=== PATIENT | male | born 1935 | race Caucasian/White ===

== ENCOUNTER 2018-03-11 13:19 | Outpatient (CLI) | payer MEDICARE ==
--- NOTE | 2018-03-11 15:35 | PET ---
NUCLEAR MEDICINE FDG PET CT: (Positron Emission Tomography) DATE: 03/11/18 HISTORY: 82-year-old male with right pulmonary mass. COMPARISON: None. TECHNIQUE: IV injection F-18 Fluorodeoxyglucose (FDG) dose: 13.1 mCi PET and attenuation-correction CT performed from skull base to proximal thighs. FINDINGS: SUV (standard uptake value) numbers given are maximum SUV's: QCLR used to obtain SUV. There is a right hilar mass measuring approximately 5 x 3 cm which is very FDG-avid, with SUV of 16.2 . It causes bronchial obstruction, resulting in atelectasis of the anterior segment of the right upper lobe. There is a separate, much smaller, mildly enlarged right inferior posterior hilar lymph node that is FDG-avid, with SUV of 12.6. There are no hypermetabolic mediastinal lymph nodes, or any other hypermetabolic pulmonary lesions. 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 No hypermetabolic activity in the neck. No abnormal hypermetabolic activity in the upper abdominal cavity. In the right lower quadrant of the abdominal cavity at the anterior upper pelvis, there is a focus of high FDG avidity (SUV 15.1) involving a slightly low density area involving the right lateral aspect of a portion of the distal sigmoid colon. This contains a tiny bubble of gas within it. No hypermeta bolic iliac chain lymphadenopathy. There is FDG avidity involving a moderately large component of left gluteal musculature with SUV of 7 .0. Left hip replacement arthroplasty metallic hardware. 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 IMPRESSION: 1. Hypermetabolic right hilar mass causing bronchial obstruction resulting in atelectasis of anterio r segment of right upper lobe: evidence for primary right lung cancer. 2. Evidence for a separate right malignant posterior inferior hilar lymph node. 3. Broad region of very hypermetabolic activity along the right lateral edge of the sigmoid colon. T his could be colon cancer or a diverticular abscess. Recommend correlation with colonoscopy. 4. Moderately large region of uptake in the left gluteus musculature, which may represent muscle str ain or tear. 5. A 5.4 x 4.5 cm infrarenal abdominal aortic aneurysm. JN R POS: [facility]
== END 2018-03-11 13:20 | disposition home or self-care (01) ==
LOC: PET 13:19
PROVIDERS: ATTEND Internal Medicine
DX: R91.1 Solitary pulmonary nodule (principal); C34.91 Malignant neoplasm of unspecified part of right bronchus or lung; J98.11 Atelectasis; C77.1 Secondary and unspecified malignant neoplasm of intrathoracic lymph nodes; I71.4 Abdominal aortic aneurysm, without rupture
CPT/HCPCS: 78815; A9552

== ENCOUNTER 2018-03-31 12:09 | Day surgery (SDC) | payer MEDICARE ==
[2018-03-30 14:32] VITALS: BMI 25.1
[2018-03-31] MEDS ORDERED: Fentanyl 100 MCG/2 ML VIAL ONE (12:56)
[2018-03-31] MEDS ORDERED: Succinylcholine Chloride 20 MG/ML 10 ml SYRINGE FS ONE (13:40)
[2018-03-31] MEDS ORDERED: PROPOFOL 200 MG/20 ML VIAL ONE (13:40)
[2018-03-31] MEDS ORDERED: Ondansetron PF 4 MG/2 ML Vial ONE (13:40)
[2018-03-31] MEDS ORDERED: PHENYLEPHRINE-NS 100 MCG/ML 10 ML SYRINGE ONE (13:40)
[2018-03-31] MEDS ORDERED: Dexamethasone 20 MG/5 ML VIAL ONE (13:40)
--- NOTE | 2018-03-31 17:01 | OP ---
DATE OF PROCEDURE: 03/31/2018 SERVICE: Pulmonary Medicine. PROCEDURES PERFORMED: Fiberoptic bronchoscopy with; 1. Endoscopic bronchial ultrasound-guided TBNA of station R3. 2. Visual airway inspection. 3. BAL from the right lung. 4. Endobronchial biopsies of the right upper lobe, and right bronchus intermedius. PREOPERATIVE DIAGNOSES: 1. Pulmonary mass. 2. Mediastinal lymphadenopathy. POSTPROCEDURE DIAGNOSES: 1. Pulmonary mass. 2. Mediastinal lymphadenopathy. MEDICATIONS USED: Please refer Anesthesia documentation for list of medications administered during this procedure. PREANESTHESIA ASSESSMENT: H and P had been performed. The patient's medications and allergies were reviewed. Informed consent was obtained after discussing the rationale, benefits, and risks of the procedure. Alternative options of sample collection were discussed. DESCRIPTION OF PROCEDURE: The patient was positively identified with name and date of . The procedure was verified. After induction of anesthesia, in a curvilinear endoscopic bronchial ultrasound and Olympus bronchoscope were introduced through the 9.0-Romansh endotracheal tube. A juan j survey was carried out. The only lymph node that was clearly identified was a very small benign-appearing R3 node. This was sampled x2. Unfortunately, we got nothing but respiratory epithelial cells. No lymphocytes were identified. This procedure was subsequently abandoned. Our this procedure was subsequently abandoned. A bronchial tree inspection was then carried out with clear identification of the lingula and left upper lobe. The right upper lobe was completely obliterated by a fungating right upper lobe white mass. The right bronchus intermedius was entered. The takeoff to the right middle lobe was wide open. The superior segment was also noted. Just distal to this into the right lower lobe, there was obstruction with very abnormal appearing mucosa. Multiple biopsies were taken at this site. I could not see anything distal to this lesion, though it was easy to pass any instruments I needed to beyond it. I also sampled the fungating mass coming from the right upper lobe on multiple occasions. Samples were sent for analysis. During the procedure, wash was obtained from the entirety of the right lung. This will also be sent for analysis. Hemostasis was verified and the bronchoscope was subsequently removed from the patient. FINDINGS: 1. The right upper lobe bronchus was completely obliterated by a fungating white endobronchial mass. 2. Right lower lobe bronchus had significant mucosal irregularities, status post multiple biopsies. 3. No other endobronchial disease was identified. 4. A very small R3 lymph node had a benign appearance, status post TBNA, which did not yield any malignant cells. SPECIMENS OBTAINED: 1. TBNA of station R3. 2. Endobronchial biopsy of right upper lobe mass. 3. Endobronchial biopsy of right lower lobe mucosal irregularities. 4. Bronchial washing from the right lung. COMPLICATIONS: None. ESTIMATED BLOOD LOSS: 5 mL. FLUOROSCOPY TIME: None. DISPOSITION: The patient will recover from sedation. When he meets criteria, discharge from the hospital will be arranged. I will have the patient follow up with me in clinic after the results come back. Job ID: [id number]
== END 2018-03-31 16:38 | disposition home or self-care (01) ==
LOC: SDC 12:09
PROVIDERS: ATTEND Internal Medicine
PROC: 07D78ZX Extraction of Thorax Lymphatic, Via Natural or Artificial Opening Endoscopic, Diagnostic (ICD-10-PCS; principal; 2018-03-31)
PROC: 0BDK8ZX Extraction of Right Lung, Via Natural or Artificial Opening Endoscopic, Diagnostic (ICD-10-PCS; 2018-03-31)
PROC: 0BB68ZX Excision of Right Lower Lobe Bronchus, Via Natural or Artificial Opening Endoscopic, Diagnostic (ICD-10-PCS; 2018-03-31)
PROC: 0BB48ZX Excision of Right Upper Lobe Bronchus, Via Natural or Artificial Opening Endoscopic, Diagnostic (ICD-10-PCS; 2018-03-31)
DX: C34.11 Malignant neoplasm of upper lobe, right bronchus or lung (principal); I25.10 Atherosclerotic heart disease of native coronary artery without angina pectoris; I71.4 Abdominal aortic aneurysm, without rupture; I10 Essential (primary) hypertension; E78.5 Hyperlipidemia, unspecified; F03.90 Unspecified dementia, unspecified severity, without behavioral disturbance, psychotic disturbance, mood disturbance, and anxiety; F41.9 Anxiety disorder, unspecified; Z87.891 Personal history of nicotine dependence; Z90.49 Acquired absence of other specified parts of digestive tract; Z96.642 Presence of left artificial hip joint; Z79.02 Long term (current) use of antithrombotics/antiplatelets; Z79.82 Long term (current) use of aspirin; Z79.899 Other long term (current) drug therapy; Z98.890 Other specified postprocedural states
CPT/HCPCS: 88112; 88172; 88173; 88305; 88312; 88313; 88341; 88342; J3010

== ENCOUNTER 2018-05-31 14:56 | Emergency (ER) | payer MEDICARE ==
--- NOTE | 2018-05-31 15:30 | RAD ---
2 VIEW CHEST: Date: 05/31/18 HISTORY: Cough. History of lung cancer. COMPARISON: 11/23/17. FINDINGS: Parenchymal haziness in the right suprahilar region is a similar appearance to the 11/23/17 exam. Mel vated right hemidiaphragm is unchanged in appearance. The heart and mediastinum appear stable. Left l jhoana remains clear and unchanged. IMPRESSION: Chest findings appear stable from 11/23/17. POS: [facility]
[2018-05-31 15:49] LABS: #Eosinphils 0.1 thou/uL (0.0-0.7); #Lymphocytes 1.9 thou/uL (1.20-3.40); #Monocytes 1.2 thou/uL (0.11-0.59); #Neutrophils 7.6 thou/uL (1.40-6.50); %Basophils 0.3 % (0.0-1.0); %Eosinophils 0.7 % (0.0-10.0); %Lymphocytes 17.2 % (21.0-51.0); %Monocytes 11.3 % (0.0-10.0); %Neutrophils 70.5 % (42.0-75.0); Hemoglobin 13.6 g/dL (14.0-18.0); Mean Corpuscular HGB CONC 32.3 g/dL (32.0-36.0); Mean Corpuscular Hemoglobin 31.5 pg (27.0-31.0); Mean Corpuscular Volume 97.4 fL (78.0-98.0); Mean Platelet Volume 5.8 fL (7.4-10.4); Platelet Count 186 thou/uL (130-400); RBC Distribution Width 12.7 % (11.5-14.5); Red Blood Cell (RBC) Count 4.33 mill/uL (4.70-6.10); White Blood Cell (WBC) Count 10.8 thou/uL (4.8-10.8)
[2018-05-31 16:04] LABS: INR-International Normal Ratio 1.2; PTT 26.8 SEC (22.9-36.1); Prothrombin Time 15.6 SEC (12.0-14.7)
[2018-05-31 16:11] LABS: ALT (SGPT) 12 U/L (8-55); AST (SGOT) 21 U/L (5-34); Albumin 3.6 g/dL (3.4-4.8); Alkaline Phosphatase 90 U/L (40-150); Anion Gap 13 mmol/L (10-20); BUN (Urea Nitrogen) 16 mg/dL (8.4-25.7); Bilirubin, Total 0.7 mg/dL (0.2-1.2); Calc. Creatinine Clearance 0 mL/min (70-130); Calcium 9.1 mg/dL (7.8-10.44); Carbon Dioxide 24 mmol/L (23-31); Chloride 108 mmol/L (98-107); Estimated GFR-MDRD 55; Globulin 2.6 g/dL (2.4-3.5); Glucose 118 mg/dL (83-110); Potassium 4.2 mmol/L (3.5-5.1); Protein, Total 6.2 g/dL (5.8-8.1); Sodium 141 mmol/L (136-145)
[2018-05-31 16:14] LABS: CK (CPK) 48 U/L (30-200); Lipase 14 U/L (8-78)
== END 2018-05-31 16:40 | disposition home or self-care (01) ==
LOC: ERS 14:56
DX: C34.91 Malignant neoplasm of unspecified part of right bronchus or lung (principal); R04.2 Hemoptysis; I71.9 Aortic aneurysm of unspecified site, without rupture; Z87.891 Personal history of nicotine dependence; Z79.899 Other long term (current) drug therapy; Z79.51 Long term (current) use of inhaled steroids
CPT/HCPCS: 36415; 71046; 80053; 82550; 83690; 85025; 85610; 85730; 86850; 86900; 86901; 93005; 94760

== ENCOUNTER 2018-12-21 10:32 | Outpatient (CLI) | payer MEDICARE ==
--- NOTE | 2018-12-21 11:17 | RAD ---
PA AND LATERAL CHEST: HISTORY: Dyspnea. COMPARISON: Chest x-ray from 05/31/2018. Chest x-ray from 11/23/2017. Chest x-ray from 12/06/2015. FINDINGS: Heart size is within normal limits. The aorta is tortuous with atherosclerotic change. On the PA proj ection the parenchymal change in the right upper lobe shows more of a linear band like appearance, mo re prominent than it has been on the prior exams, but the appearance is actually fairly similar when comparing the lateral view. Some of this may just be a projectional finding. The left lung remains cl ear. IMPRESSION: Volume loss changes with atelectatic type change in the right upper lobe. On the posterior-anterior p rojection it appears slightly more prominent but not definitely changed when viewing the lateral film s. POS: [facility]
== END 2018-12-21 10:33 | disposition home or self-care (01) ==
LOC: RAD 10:32
PROVIDERS: ATTEND Internal Medicine
DX: R06.00 Dyspnea, unspecified (principal)
CPT/HCPCS: 71046

== ENCOUNTER 2020-12-31 08:19 | Inpatient (IN) | payer MEDICARE ==
[~2020-12-31 08:19] MED LIST: Acetaminophen 325 MG TAB PO PRN
[2020-12-31] MEDS ORDERED: Albuterol Sulfate 2.5 mg/3 ml Neb NEB PRN ×2 (11:18→13:33)
[2020-12-31] MEDS ORDERED: Azithromycin 250 MG TAB PO SCH (14:15)
[2020-12-31 15:51] LABS: Troponin I 0.027 ng/mL (< 0.028)
[2020-12-31 16:22] VITALS: BMI 27.6
[2020-12-31] MEDS: Polyethylene Glycol 3350 17 GM Packet PO SCH (21:14)
[2020-12-31] MEDS: Donepezil HCl 5 MG TAB PO SCH (21:18)
[2020-12-31] MEDS: guaiFENesin ER 600 MG TAB PO SCH (21:18)
[2020-12-31] MEDS ORDERED: Ibuprofen 800 MG TAB PO SCH (22:00)
[2020-12-31] MEDS: Zolpidem Tartrate 5 MG TAB PO SCH (22:53)
[2021-01-01 05:14] LABS: #Basophils 0.1 thou/uL (0.0-0.2); #Eosinphils 0.1 thou/uL (0.0-0.7); #Lymphocytes 0.6 thou/uL (1.20-3.40); #Monocytes 0.9 thou/uL (0.11-0.59); #Neutrophils 10.8 thou/uL (1.40-6.50); %Basophils 0.8 % (0.0-1.0); %Eosinophils 1.2 % (0.0-10.0); %Lymphocytes 4.6 % (21.0-51.0); %Monocytes 6.8 % (0.0-10.0); %Neutrophils 86.6 % (42.0-75.0); Hemoglobin 11.5 g/dL (14.0-18.0); Mean Corpuscular HGB CONC 32.1 g/dL (32.0-36.0); Mean Corpuscular Hemoglobin 30.4 pg (27.0-31.0); Mean Corpuscular Volume 94.7 fL (78.0-98.0); Mean Platelet Volume 5.9 fL (7.4-10.4); Platelet Count 241 thou/uL (130-400); RBC Distribution Width 14.8 % (11.5-14.5); Red Blood Cell (RBC) Count 3.79 mill/uL (4.70-6.10); White Blood Cell (WBC) Count 12.5 thou/uL (4.8-10.8)
[2021-01-01 05:33] LABS: ALT (SGPT) 36 U/L (8-55); AST (SGOT) 40 U/L (5-34); Albumin 2.7 g/dL (3.4-4.8); Alkaline Phosphatase 114 U/L (40-110); Anion Gap 11 mmol/L (10-20); BUN (Urea Nitrogen) 15 mg/dL (8.4-25.7); Calc. Creatinine Clearance 52 mL/min (70-130); Calcium 8.9 mg/dL (7.8-10.44); Carbon Dioxide 29 mmol/L (23-31); Chloride 101 mmol/L (98-107); Globulin 2.8 g/dL (2.4-3.5); Glucose 100 mg/dL (83-110); Potassium 3.1 mmol/L (3.5-5.1); Protein, Total 5.5 g/dL (5.8-8.1); Sodium 138 mmol/L (136-145)
[2021-01-01] MEDS ORDERED: Potassium Chloride 20 MEQ TAB PO SCH (09:00)
[2021-01-01] MEDS ORDERED: Enoxaparin Sodium 40 MG/0.4 ML SYRINGE SC SCH (09:00)
[2021-01-01] MEDS ORDERED: FLU VACC QS2021-22(65YR UP)/PF 240 MCG/0.7 ML SYRINGE IM ONE (09:00)
[2021-01-01] MEDS: Polyethylene Glycol 3350 17 GM Packet PO SCH ×2 (09:22→20:03)
[2021-01-01] MEDS: Clopidogrel Bisulfate 75 MG TAB PO SCH (09:24)
[2021-01-01] MEDS: Aspirin 81 mg Enteric Coated Tablet PO SCH (09:24)
[2021-01-01] MEDS: guaiFENesin ER 600 MG TAB PO SCH ×2 (09:25→20:03)
[2021-01-01] MEDS: Dexamethasone 4 MG TAB PO SCH (09:25)
[2021-01-01] MEDS: Amlodipine 10 MG TAB PO SCH (09:25)
[2021-01-01] MEDS: Atorvastatin Calcium 20 MG TAB PO SCH (09:26)
[2021-01-01] MEDS: Azithromycin 250 MG TAB PO SCH (09:26)
[2021-01-01 10:52] LABS: HBSAB Concentration Less than 8.00 mIU/mL; HBSAg Index 0.27 S/CO (0-0.99); Hep B Surf AB Non-Reactive (NonReactive); Hep B Surf Ag Non-Reactive S/CO (NonReactive); Hep C IgG Ab Non-Reactive (NonReactive); Hep C Index 0.08 S/CO (0-0.79)
[2021-01-01] MEDS: cefTRIAXone\\ROCEPHIN 1 GM in Sodium Chloride 0.9% 100 ML IVPB SCH (13:46)
[2021-01-01 16:31] LABS: HBCM Index 0.07 S/CO (0-0.79); Hepatitis B Core IgM Abs Non-Reactive (NonReactive)
[2021-01-01 18:02] LABS: SARS-CoV-2 PCR by NAA Not Detected (NotDetected)
[2021-01-01] MEDS ORDERED: Mometasone Furoate 120 PUFF 220 MCG INH SCH (18:30)
[2021-01-01] MEDS: Mometasone 100 MCG/Formoterol 5 MCG 120 PUFF INHALER INH SCH (18:39)
[2021-01-01] MEDS: Donepezil HCl 5 MG TAB PO SCH (20:03)
[2021-01-01] MEDS: Zolpidem Tartrate 5 MG TAB PO SCH (23:12)
[2021-01-02] MEDS: Mometasone 100 MCG/Formoterol 5 MCG 120 PUFF INHALER INH SCH ×2 (06:55→18:58)
[2021-01-02] MEDS: Polyethylene Glycol 3350 17 GM Packet PO SCH ×2 (08:19→18:40)
[2021-01-02] MEDS: Dronedarone HCl 400 MG TAB PO SCH ×2 (08:20→18:25)
[2021-01-02] MEDS: Aspirin 81 mg Enteric Coated Tablet PO SCH (08:20)
[2021-01-02] MEDS: guaiFENesin ER 600 MG TAB PO SCH ×2 (08:21→20:28)
[2021-01-02] MEDS: Atorvastatin Calcium 20 MG TAB PO SCH (08:21)
[2021-01-02] MEDS: Amlodipine 10 MG TAB PO SCH (08:22)
[2021-01-02] MEDS: Clopidogrel Bisulfate 75 MG TAB PO SCH (08:22)
[2021-01-02] MEDS: Azithromycin 250 MG TAB PO SCH (08:22)
[2021-01-02] MEDS: Dexamethasone 4 MG TAB PO SCH (08:22)
[2021-01-02] MEDS: Enoxaparin Sodium 80 MG/0.8 ML SYRINGE SC SCH ×2 (08:23→20:28)
[2021-01-02] MEDS ORDERED: Furosemide 20 MG/2 ML VIAL SLOW IVP SCH (09:00)
[2021-01-02] MEDS: Tamsulosin HCl 0.4 MG CAP PO SCH (09:56)
[2021-01-02] MEDS: Lisinopril 10 MG TAB PO SCH (09:56)
[2021-01-02] MEDS: cefTRIAXone\\ROCEPHIN 1 GM in Sodium Chloride 0.9% 100 ML IVPB SCH (14:54)
[2021-01-02] MEDS: Acetaminophen 325 MG TAB PO PRN (14:54)
[2021-01-02] MEDS: Zolpidem Tartrate 5 MG TAB PO SCH (20:28)
[2021-01-02] MEDS: Donepezil HCl 5 MG TAB PO SCH (20:28)
[2021-01-03 05:50] LABS: Anion Gap 11 mmol/L (10-20); BUN (Urea Nitrogen) 19 mg/dL (8.4-25.7); Calc. Creatinine Clearance 53 mL/min (70-130); Carbon Dioxide 33 mmol/L (23-31); Chloride 99 mmol/L (98-107); Glucose 140 mg/dL (83-110); Sodium 139 mmol/L (136-145)
[2021-01-03] MEDS: Mometasone 100 MCG/Formoterol 5 MCG 120 PUFF INHALER INH SCH ×2 (07:33→18:22)
[2021-01-03] MEDS: Polyethylene Glycol 3350 17 GM Packet PO SCH (08:50)
[2021-01-03] MEDS: Dronedarone HCl 400 MG TAB PO SCH ×2 (08:53→18:20)
[2021-01-03] MEDS: Acetaminophen 325 MG TAB PO PRN (08:53)
[2021-01-03] MEDS: Dexamethasone 4 MG TAB PO SCH (08:56)
[2021-01-03] MEDS: Aspirin 81 mg Enteric Coated Tablet PO SCH (08:57)
[2021-01-03] MEDS: Atorvastatin Calcium 20 MG TAB PO SCH (08:57)
[2021-01-03] MEDS: Azithromycin 250 MG TAB PO SCH (08:57)
[2021-01-03] MEDS: Amlodipine 10 MG TAB PO SCH (08:57)
[2021-01-03] MEDS: Tamsulosin HCl 0.4 MG CAP PO SCH (08:57)
[2021-01-03] MEDS: Enoxaparin Sodium 80 MG/0.8 ML SYRINGE SC SCH (08:58)
[2021-01-03] MEDS: Lisinopril 10 MG TAB PO SCH (08:58)
[2021-01-03] MEDS: guaiFENesin ER 600 MG TAB PO SCH (08:58)
[2021-01-03] MEDS ORDERED: Rivaroxaban 10 MG TAB PO SCH ×3 (14:00→21:00)
[2021-01-03] MEDS: cefTRIAXone\\ROCEPHIN 1 GM in Sodium Chloride 0.9% 100 ML IVPB SCH (14:47)
[2021-01-03 16:04] VITALS: BP 115/61; TEMP 98.1
== END 2021-01-03 18:41 | disposition home health service (06) | DRG 193 ==
LOC: 2SE 10:42 → OBSVTOIN 13:30 → 2SW 20:10
PROVIDERS: ADMIT Student in an Organized Health Care Education/Training Program; ATTEND Student in an Organized Health Care Education/Training Program
DX: J18.9 Pneumonia, unspecified organism (principal); J96.01 Acute respiratory failure with hypoxia; J44.1 Chronic obstructive pulmonary disease with (acute) exacerbation; J44.0 Chronic obstructive pulmonary disease with (acute) lower respiratory infection; Z23 Encounter for immunization; Z20.822 Contact with and (suspected) exposure to COVID-19; I10 Essential (primary) hypertension; I73.9 Peripheral vascular disease, unspecified; I25.10 Atherosclerotic heart disease of native coronary artery without angina pectoris; E78.5 Hyperlipidemia, unspecified; I44.0 Atrioventricular block, first degree; I51.9 Heart disease, unspecified; E87.6 Hypokalemia; C61 Malignant neoplasm of prostate; I48.0 Paroxysmal atrial fibrillation; I49.3 Ventricular premature depolarization; I35.0 Nonrheumatic aortic (valve) stenosis; Z96.643 Presence of artificial hip joint, bilateral; Z79.51 Long term (current) use of inhaled steroids; Z79.82 Long term (current) use of aspirin; Z79.899 Other long term (current) drug therapy; Z90.49 Acquired absence of other specified parts of digestive tract; Z87.891 Personal history of nicotine dependence; Z85.118 Personal history of other malignant neoplasm of bronchus and lung
CPT/HCPCS: 36415; 36416; 80048; 80053; 83735; 84145; 85025; 86705; 86706; 86803; 87340; 87631; 93005; 93010; 93306; 94640; J0696; J1650; J1940; J3490; J7620; J8540; U0003; U0005

== ENCOUNTER 2022-03-20 00:49 | Inpatient (IN) | payer MEDICARE ==
[2022-03-20] MEDS ORDERED: DOPamine 400 MG/D5W 250 ML 250 ML ONE (01:01)
[2022-03-20] MEDS ORDERED: Acetaminophen 325 MG TAB PO PRN (02:08)
[2022-03-20] MEDS ORDERED: Ondansetron ODT 4 MG TAB PO PRN (02:08)
[2022-03-20] MEDS ORDERED: Acetaminophen 650 MG Suppository PR PRN (02:08)
[2022-03-20] MEDS ORDERED: Ondansetron PF 4 MG/2 ML Vial IVP PRN (02:08)
[2022-03-20] MEDS ORDERED: Ipratropium/Albuterol 3 ML NEB NEB PRN (02:12)
[2022-03-20 02:33] LABS: Hemoglobin 10.2 g/dL (14.0-18.0); Mean Corpuscular HGB CONC 32.2 g/dL (32.0-36.0); Mean Corpuscular Hemoglobin 31.1 pg (27.0-31.0); Mean Corpuscular Volume 96.6 fl (78.0-98.0); RBC Distribution Width 13.3 % (11.5-14.5); Red Blood Cell (RBC) Count 3.29 mill/uL (4.70-6.10); White Blood Cell (WBC) Count 6.1 10x3/uL (4.8-10.8)
[2022-03-20 02:54] LABS: Anion Gap 17 mmol/L (10-20); BUN (Urea Nitrogen) 16 mg/dL (8.4-25.7); Calc. Creatinine Clearance 0 mL/min (70-130); Calcium 8.7 mg/dL (7.8-10.44); Carbon Dioxide 25 mmol/L (23-31); Chloride 101 mmol/L (98-107); Estimated GFR 43; Glucose 87 mg/dL (83-110); Potassium 4.8 mmol/L (3.5-5.1); Sodium 138 mmol/L (136-145)
[2022-03-20 03:06] LABS: #Eosinphils 0.1 thou/uL (0.0-0.7); #Lymphocytes 0.9 thou/uL (1.20-3.40); #Monocytes 0.6 thou/uL (0.11-0.59); #Neutrophils 4.6 thou/uL (1.40-6.50); %Basophils 0.1 % (0.0-1.0); %Lymphocytes 14.4 % (21.0-51.0); %Monocytes 10.3 % (0.0-10.0); %Neutrophils 74.3 % (42.0-75.0); Mean Platelet Volume 6.7 fL (7.4-10.4); Platelet Count 109 10x3/uL (130-400); Platelet Morphology Comment Appears Decreased
[2022-03-20] MEDS ORDERED: Sodium Chloride 0.9% 1,000 ML IV SCH (03:15)
[2022-03-20] MEDS ORDERED: DOPamine 400 MG/D5W 250 ML 250 ML IVPB SCH (03:15)
[2022-03-20 03:20] LABS: SARS-CoV-2 NAA Rapid Test Not Detected (NotDetected)
[2022-03-20 04:31] VITALS: BMI 31.1
[2022-03-20] MEDS: Ipratropium/Albuterol 3 ML NEB NEB SCH ×6 (05:55→22:36)
[2022-03-20 07:05] LABS: #Eosinphils 0.1 thou/uL (0.0-0.7); #Lymphocytes 0.8 thou/uL (1.20-3.40); #Monocytes 0.7 thou/uL (0.11-0.59); #Neutrophils 4.4 thou/uL (1.40-6.50); %Lymphocytes 13.1 % (21.0-51.0); %Monocytes 12.4 % (0.0-10.0); %Neutrophils 73.5 % (42.0-75.0); Hemoglobin 9.9 g/dL (14.0-18.0); Mean Corpuscular HGB CONC 32.8 g/dL (32.0-36.0); Mean Corpuscular Hemoglobin 31.9 pg (27.0-31.0); Mean Corpuscular Volume 97.3 fl (78.0-98.0); Mean Platelet Volume 6.7 fL (7.4-10.4); Platelet Count 113 10x3/uL (130-400); RBC Distribution Width 13.2 % (11.5-14.5); Red Blood Cell (RBC) Count 3.11 mill/uL (4.70-6.10)
[2022-03-20 07:23] LABS: Anion Gap 16 mmol/L (10-20); BUN (Urea Nitrogen) 15 mg/dL (8.4-25.7); Calc. Creatinine Clearance 43 mL/min (70-130); Calcium 8.9 mg/dL (7.8-10.44); Carbon Dioxide 26 mmol/L (23-31); Chloride 101 mmol/L (98-107); Estimated GFR 46; Glucose 82 mg/dL (83-110); Potassium 4.5 mmol/L (3.5-5.1); Sodium 138 mmol/L (136-145)
[2022-03-20] MEDS ORDERED: DOBUTamine 500 mg/250 ml 250 ML IVPB SCH (09:30)
[2022-03-20] MEDS ORDERED: Sodium Chloride 0.9% 500 ML IV SCH (09:30)
[2022-03-20] MEDS: Sodium Chloride 0.9% 1,000 ML IV SCH ×2 (14:15→20:48)
[2022-03-20] MEDS ORDERED: Bisacodyl 5 MG TAB PO PRN (15:57)
[2022-03-20] MEDS: Polyethylene Glycol 3350 17 GM Packet PO PRN (16:17)
[2022-03-21] MEDS: Ipratropium/Albuterol 3 ML NEB NEB SCH ×6 (01:49→23:40)
[2022-03-21 05:00] LABS: #Basophils 0.2 thou/uL (0.0-0.2); #Eosinphils 0.1 thou/uL (0.0-0.7); #Lymphocytes 0.8 thou/uL (1.20-3.40); #Monocytes 0.6 thou/uL (0.11-0.59); #Neutrophils 3.7 thou/uL (1.40-6.50); %Basophils 2.9 % (0.0-1.0); %Eosinophils 1.3 % (0.0-10.0); %Lymphocytes 15.4 % (21.0-51.0); %Monocytes 10.8 % (0.0-10.0); %Neutrophils 69.5 % (42.0-75.0); Hemoglobin 9.6 g/dL (14.0-18.0); Mean Corpuscular HGB CONC 32.2 g/dL (32.0-36.0); Mean Corpuscular Hemoglobin 31.1 pg (27.0-31.0); Mean Corpuscular Volume 96.8 fl (78.0-98.0); Mean Platelet Volume 6.9 fL (7.4-10.4); Platelet Count 101 10x3/uL (130-400); RBC Distribution Width 13.3 % (11.5-14.5); Red Blood Cell (RBC) Count 3.08 mill/uL (4.70-6.10); White Blood Cell (WBC) Count 5.3 10x3/uL (4.8-10.8)
[2022-03-21 05:15] LABS: Anion Gap 12 mmol/L (10-20); BUN (Urea Nitrogen) 11 mg/dL (8.4-25.7); Calc. Creatinine Clearance 55 mL/min (70-130); Calcium 8.6 mg/dL (7.8-10.44); Carbon Dioxide 25 mmol/L (23-31); Chloride 105 mmol/L (98-107); Estimated GFR 62; Glucose 79 mg/dL (83-110); Potassium 3.9 mmol/L (3.5-5.1); Sodium 138 mmol/L (136-145)
[2022-03-21] MEDS: Sodium Chloride 0.9% 1,000 ML IV SCH ×2 (07:00→07:38)
[2022-03-21] MEDS: Polyethylene Glycol 3350 17 GM Packet PO PRN (07:46)
[2022-03-21] MEDS ORDERED: Furosemide 40 MG TAB PO SCH (11:00)
[2022-03-21] MEDS ORDERED: Tamsulosin HCl 0.4 MG CAP PO SCH (11:00)
[2022-03-21] MEDS: Furosemide 40 MG TAB PO SCH (17:38)
[2022-03-21] MEDS: Donepezil HCl 5 MG TAB PO SCH (21:11)
[2022-03-21] MEDS: Tamsulosin HCl 0.4 MG CAP PO SCH (21:12)
[2022-03-22] MEDS: Ipratropium/Albuterol 3 ML NEB NEB SCH ×6 (03:00→22:16)
[2022-03-22 05:42] LABS: #Eosinphils 0.1 thou/uL (0.0-0.7); #Lymphocytes 0.7 thou/uL (1.20-3.40); #Monocytes 0.7 thou/uL (0.11-0.59); #Neutrophils 4.4 thou/uL (1.40-6.50); %Basophils 0.1 % (0.0-1.0); %Eosinophils 1.9 % (0.0-10.0); %Lymphocytes 12.3 % (21.0-51.0); %Monocytes 12.1 % (0.0-10.0); %Neutrophils 73.5 % (42.0-75.0); Mean Corpuscular HGB CONC 32.3 g/dL (32.0-36.0); Mean Corpuscular Hemoglobin 31.3 pg (27.0-31.0); Mean Corpuscular Volume 96.9 fl (78.0-98.0); Mean Platelet Volume 6.8 fL (7.4-10.4); Platelet Count 127 10x3/uL (130-400); RBC Distribution Width 13.3 % (11.5-14.5); Red Blood Cell (RBC) Count 3.18 mill/uL (4.70-6.10)
[2022-03-22 05:57] LABS: Anion Gap 14 mmol/L (10-20); BUN (Urea Nitrogen) 9 mg/dL (8.4-25.7); Calc. Creatinine Clearance 57 mL/min (70-130); Calcium 8.8 mg/dL (7.8-10.44); Carbon Dioxide 28 mmol/L (23-31); Chloride 101 mmol/L (98-107); Estimated GFR 65; Glucose 72 mg/dL (83-110); Potassium 3.6 mmol/L (3.5-5.1); Sodium 139 mmol/L (136-145)
[2022-03-22] MEDS ORDERED: Furosemide 40 MG TAB PO SCH (09:00)
[2022-03-22] MEDS: Ascorbic Acid 500 mg Chewable Tablet PO SCH (10:06)
[2022-03-22] MEDS: Amlodipine 5 MG TAB PO SCH (10:06)
[2022-03-22] MEDS: Aspirin 81 mg Enteric Coated Tablet PO SCH (10:06)
[2022-03-22] MEDS: Ferrous Sulfate 325 MG TAB PO SCH (10:06)
[2022-03-22] MEDS: Furosemide 40 MG TAB PO SCH ×2 (10:07→14:28)
[2022-03-22] MEDS: Donepezil HCl 5 MG TAB PO SCH (19:59)
[2022-03-22] MEDS: Tamsulosin HCl 0.4 MG CAP PO SCH (19:59)
[2022-03-23] MEDS: Ipratropium/Albuterol 3 ML NEB NEB SCH ×6 (02:09→22:39)
[2022-03-23 05:12] LABS: #Eosinphils 0.1 thou/uL (0.0-0.7); #Monocytes 0.9 thou/uL (0.11-0.59); #Neutrophils 5.3 thou/uL (1.40-6.50); %Basophils 0.5 % (0.0-1.0); %Eosinophils 0.9 % (0.0-10.0); %Lymphocytes 13.3 % (21.0-51.0); %Monocytes 12.3 % (0.0-10.0); Hemoglobin 10.2 g/dL (14.0-18.0); Mean Corpuscular HGB CONC 32.3 g/dL (32.0-36.0); Mean Corpuscular Hemoglobin 31.5 pg (27.0-31.0); Mean Corpuscular Volume 97.5 fl (78.0-98.0); Mean Platelet Volume 6.6 fL (7.4-10.4); Platelet Count 118 10x3/uL (130-400); RBC Distribution Width 13.2 % (11.5-14.5); Red Blood Cell (RBC) Count 3.23 mill/uL (4.70-6.10); White Blood Cell (WBC) Count 7.3 10x3/uL (4.8-10.8)
[2022-03-23 05:26] LABS: Anion Gap 12 mmol/L (10-20); BUN (Urea Nitrogen) 10 mg/dL (8.4-25.7); Calc. Creatinine Clearance 50 mL/min (70-130); Calcium 8.9 mg/dL (7.8-10.44); Carbon Dioxide 29 mmol/L (23-31); Chloride 96 mmol/L (98-107); Estimated GFR 58; Glucose 99 mg/dL (83-110); Potassium 3.4 mmol/L (3.5-5.1); Sodium 134 mmol/L (136-145)
[2022-03-23] MEDS: Ascorbic Acid 500 mg Chewable Tablet PO SCH (08:16)
[2022-03-23] MEDS: Potassium Chloride 20 MEQ TAB PO SCH (08:16)
[2022-03-23] MEDS: Amlodipine 5 MG TAB PO SCH (08:17)
[2022-03-23] MEDS: Aspirin 81 mg Enteric Coated Tablet PO SCH (08:17)
[2022-03-23] MEDS: Tamsulosin HCl 0.4 MG CAP PO SCH (08:17)
[2022-03-23] MEDS: Atorvastatin Calcium 20 MG TAB PO SCH (08:17)
[2022-03-23] MEDS: Furosemide 40 MG TAB PO SCH (08:18)
[2022-03-23] MEDS: Ferrous Sulfate 325 MG TAB PO SCH (08:18)
[2022-03-23] MEDS: Polyethylene Glycol 3350 17 GM Packet PO SCH (08:19)
[2022-03-23] MEDS ORDERED: FLU VACC QS2022-23(65YR UP)/PF 240 MCG/0.7 ML SYRINGE IM ONE (09:00)
[2022-03-23] MEDS ORDERED: Potassium Chloride 20 MEQ TAB PO SCH (14:30)
[2022-03-23] MEDS: Zolpidem Tartrate 5 MG TAB PO SCH (21:18)
[2022-03-23] MEDS: Donepezil HCl 5 MG TAB PO SCH (21:18)
[2022-03-24] MEDS: Ipratropium/Albuterol 3 ML NEB NEB SCH ×6 (01:53→21:42)
[2022-03-24 05:29] LABS: Anion Gap 12 mmol/L (10-20); BUN (Urea Nitrogen) 11 mg/dL (8.4-25.7); Calc. Creatinine Clearance 54 mL/min (70-130); Carbon Dioxide 30 mmol/L (23-31); Chloride 98 mmol/L (98-107); Estimated GFR 64; Glucose 85 mg/dL (83-110); Potassium 3.4 mmol/L (3.5-5.1); Sodium 137 mmol/L (136-145)
[2022-03-24] MEDS: Furosemide 40 MG TAB PO SCH (08:26)
[2022-03-24] MEDS: Amlodipine 5 MG TAB PO SCH (08:26)
[2022-03-24] MEDS: Aspirin 81 mg Enteric Coated Tablet PO SCH (08:26)
[2022-03-24] MEDS: Tamsulosin HCl 0.4 MG CAP PO SCH (08:26)
[2022-03-24] MEDS: Potassium Chloride 20 MEQ TAB PO SCH (08:26)
[2022-03-24] MEDS: Atorvastatin Calcium 20 MG TAB PO SCH (08:26)
[2022-03-24] MEDS: Ascorbic Acid 500 mg Chewable Tablet PO SCH (08:26)
[2022-03-24] MEDS: Ferrous Sulfate 325 MG TAB PO SCH (08:27)
[2022-03-24] MEDS: Polyethylene Glycol 3350 17 GM Packet PO SCH (08:28)
[2022-03-24] MEDS ORDERED: traMADol HCl 50 MG TAB PO SCH (15:00)
[2022-03-24] MEDS ORDERED: Potassium Chloride 20 MEQ TAB PO SCH (15:30)
[2022-03-24] MEDS: Zolpidem Tartrate 5 MG TAB PO SCH (21:35)
[2022-03-24] MEDS: Donepezil HCl 5 MG TAB PO SCH (21:35)
[2022-03-24] MEDS: traMADol HCl 50 MG TAB PO PRN (21:39)
[2022-03-25] MEDS: Ipratropium/Albuterol 3 ML NEB NEB SCH ×4 (01:01→14:13)
[2022-03-25 05:21] LABS: Anion Gap 12 mmol/L (10-20); BUN (Urea Nitrogen) 12 mg/dL (8.4-25.7); Calc. Creatinine Clearance 68 mL/min (70-130); Calcium 8.8 mg/dL (7.8-10.44); Carbon Dioxide 29 mmol/L (23-31); Chloride 99 mmol/L (98-107); Estimated GFR 83; Glucose 76 mg/dL (83-110); Potassium 3.7 mmol/L (3.5-5.1); Sodium 136 mmol/L (136-145)
[2022-03-25] MEDS: Ferrous Sulfate 325 MG TAB PO SCH (07:49)
[2022-03-25] MEDS: Ascorbic Acid 500 mg Chewable Tablet PO SCH (10:09)
[2022-03-25] MEDS: Atorvastatin Calcium 20 MG TAB PO SCH (10:10)
[2022-03-25] MEDS: Furosemide 40 MG TAB PO SCH (10:10)
[2022-03-25] MEDS: Potassium Chloride 20 MEQ TAB PO SCH (10:10)
[2022-03-25] MEDS: Tamsulosin HCl 0.4 MG CAP PO SCH (10:10)
[2022-03-25] MEDS: Amlodipine 5 MG TAB PO SCH (10:10)
[2022-03-25] MEDS: Polyethylene Glycol 3350 17 GM Packet PO SCH (10:11)
[2022-03-25] MEDS: Aspirin 81 mg Enteric Coated Tablet PO SCH (10:11)
[2022-03-25] MEDS: traMADol HCl 50 MG TAB PO PRN ×2 (11:58→17:24)
[2022-03-25 16:15] VITALS: BP 138/67; TEMP 97.9
== END 2022-03-25 18:05 | disposition home or self-care (01) | DRG 308 ==
LOC: ERS 00:49 → IMCU/EMU 02:35 → 2SW 03-22 20:36
PROVIDERS: ADMIT Family Medicine; ATTEND Family Medicine
PROC: 3E033XZ Introduction of Vasopressor into Peripheral Vein, Percutaneous Approach (ICD-10-PCS; principal; 2022-03-20)
DX: R00.1 Bradycardia, unspecified (principal); I50.33 Acute on chronic diastolic (congestive) heart failure; I82.621 Acute embolism and thrombosis of deep veins of right upper extremity; J96.11 Chronic respiratory failure with hypoxia; N17.9 Acute kidney failure, unspecified; R04.2 Hemoptysis; Z20.822 Contact with and (suspected) exposure to COVID-19; T44.7X5A Adverse effect of beta-adrenoreceptor antagonists, initial encounter; T46.2X5A Adverse effect of other antidysrhythmic drugs, initial encounter; E87.6 Hypokalemia; J44.9 Chronic obstructive pulmonary disease, unspecified; I11.0 Hypertensive heart disease with heart failure; E78.5 Hyperlipidemia, unspecified; Z96.649 Presence of unspecified artificial hip joint; I48.21 Permanent atrial fibrillation; I49.5 Sick sinus syndrome; I71.40 Abdominal aortic aneurysm, without rupture, unspecified; I08.3 Combined rheumatic disorders of mitral, aortic and tricuspid valves; Z28.21 Immunization not carried out because of patient refusal; Z99.81 Dependence on supplemental oxygen; Z79.899 Other long term (current) drug therapy; Z79.82 Long term (current) use of aspirin; Z90.49 Acquired absence of other specified parts of digestive tract; Z95.828 Presence of other vascular implants and grafts; Z87.891 Personal history of nicotine dependence; Z85.118 Personal history of other malignant neoplasm of bronchus and lung
CPT/HCPCS: 36415; 80048; 83735; 83880; 84484; 85025; 93005; 93010; 93306; 94640; 96372; 96374; J1265; J1650; J2405; J7050; J7620; U0002

== ENCOUNTER 2022-04-29 11:45 | Outpatient (CLI) | payer MEDICARE | END 2022-04-29 11:46 | disposition home or self-care (01) | LOC: PET 11:45 | PROVIDERS: ATTEND Internal Medicine Hematology & Oncology | DX: C34.01 Malignant neoplasm of right main bronchus (principal); C77.1 Secondary and unspecified malignant neoplasm of intrathoracic lymph nodes | CPT/HCPCS: 78815; A9552 ==

== ENCOUNTER 2022-09-29 14:40 | Inpatient (IN) | payer MEDICARE ==
[2022-09-29] MEDS ORDERED: Acetaminophen 325 MG TAB PO PRN ×2 (15:30→15:54)
[2022-09-29] MEDS ORDERED: Ondansetron ODT 4 MG TAB SL PRN (15:30)
[2022-09-29] MEDS ORDERED: Ondansetron PF 4 MG/2 ML Vial IVP PRN (15:30)
[2022-09-29] MEDS ORDERED: Metoclopramide HCl 10 MG/2 ML VIAL IVP PRN (16:01)
[2022-09-29 17:38] VITALS: BMI 21.7
[2022-09-29 17:51] LABS: Troponin I 0.026 ng/mL (< 0.028)
[2022-09-29] MEDS: Ipratropium/Albuterol 3 ML NEB EZPAP SCH ×2 (18:35→23:31)
[2022-09-29] MEDS: Mometasone 200 MCG/Formoterol 5 MCG 120 PUFF INHALER INH SCH (18:36)
[2022-09-29] MEDS ORDERED: Gabapentin 100 MG CAP PO SCH (21:00)
[2022-09-29] MEDS: Atorvastatin Calcium 40 MG TAB PO SCH (21:27)
[2022-09-29] MEDS: Terazosin HCl 1 MG CAP PO SCH (21:28)
[2022-09-29] MEDS: Donepezil HCl 5 MG TAB PO SCH (21:29)
[2022-09-29] MEDS: Polyethylene Glycol 3350 17 GM Packet PO SCH (21:29)
[2022-09-29] MEDS: Cefepime 1 GM in Sodium Chloride 0.9% 100 ML IVPB SCH ×2 (22:16→23:06)
[2022-09-30 03:55] LABS: #Eosinphils 0.1 thou/uL (0.0-0.7); #Monocytes 1.6 thou/uL (0.11-0.59); #Neutrophils 13.3 thou/uL (1.40-6.50); %Basophils 0.2 % (0.0-1.0); %Eosinophils 0.4 % (0.0-10.0); %Lymphocytes 6.6 % (21.0-51.0); %Monocytes 9.7 % (0.0-10.0); %Neutrophils 82.3 % (42.0-75.0); Hematocrit 36.6 % (42.0-52.0); Hemoglobin 11.5 g/dL (14.0-18.0); Mean Corpuscular HGB CONC 31.4 g/dL (32.0-36.0); Mean Corpuscular Volume 101.9 fl (78.0-98.0); Mean Platelet Volume 8.6 fL (7.4-10.4); Platelet Count 127 10x3/uL (130-400); RBC Distribution Width 18.8 % (11.5-14.5); Red Blood Cell (RBC) Count 3.59 mill/uL (4.70-6.10); White Blood Cell (WBC) Count 16.2 10x3/uL (4.8-10.8)
[2022-09-30 04:15] LABS: Anion Gap 13 mmol/L (10-20); BUN (Urea Nitrogen) 18 mg/dL (8.4-25.7); Calc. Creatinine Clearance 58 mL/min (70-130); Calcium 8.9 mg/dL (7.8-10.44); Carbon Dioxide 25 mmol/L (23-31); Chloride 104 mmol/L (98-107); Estimated GFR 79; Glucose 120 mg/dL (83-110); Potassium 3.7 mmol/L (3.5-5.1); Sodium 138 mmol/L (136-145)
[2022-09-30 06:49] LABS: Legionella Urinary Ag Negative (Negative); Strep pneumo Urine Ag NEGATIVE (NEGATIVE)
[2022-09-30] MEDS: Mometasone 200 MCG/Formoterol 5 MCG 120 PUFF INHALER INH SCH ×2 (07:46→19:06)
[2022-09-30] MEDS: Ipratropium/Albuterol 3 ML NEB EZPAP SCH ×4 (07:46→23:00)
[2022-09-30] MEDS: Aspirin 81 mg Enteric Coated Tablet PO SCH (10:05)
[2022-09-30] MEDS: Tamsulosin HCl 0.4 MG CAP PO SCH (10:05)
[2022-09-30] MEDS: Amlodipine 10 MG TAB PO SCH (10:05)
[2022-09-30] MEDS: Polyethylene Glycol 3350 17 GM Packet PO SCH ×3 (10:06→19:55)
[2022-09-30] MEDS: Cefepime 1 GM in Sodium Chloride 0.9% 100 ML IVPB SCH ×2 (10:06→23:29)
[2022-09-30] MEDS: traMADol HCl 50 MG TAB PO PRN (10:22)
[2022-09-30] MEDS ORDERED: Vancomycin 1.5 GRAM/300 ML BAG 1.5 GM in Premix Bag 1 BAG IVPB SCH (12:00)
[2022-09-30] MEDS: Gabapentin 100 MG CAP PO SCH ×2 (13:44→19:54)
[2022-09-30] MEDS: Donepezil HCl 5 MG TAB PO SCH (19:54)
[2022-09-30] MEDS: Terazosin HCl 1 MG CAP PO SCH (19:54)
[2022-09-30] MEDS: Atorvastatin Calcium 40 MG TAB PO SCH (19:54)
[2022-10-01 04:51] LABS: #Eosinphils 0.1 thou/uL (0.0-0.7); #Monocytes 1.4 thou/uL (0.11-0.59); #Neutrophils 9.9 thou/uL (1.40-6.50); %Basophils 0.2 % (0.0-1.0); %Eosinophils 0.4 % (0.0-10.0); %Lymphocytes 6.5 % (21.0-51.0); %Monocytes 11.6 % (0.0-10.0); %Neutrophils 80.4 % (42.0-75.0); Hematocrit 33.8 % (42.0-52.0); Hemoglobin 10.9 g/dL (14.0-18.0); Mean Corpuscular HGB CONC 32.2 g/dL (32.0-36.0); Mean Corpuscular Hemoglobin 32.2 pg (27.0-31.0); Mean Platelet Volume 9.2 fL (7.4-10.4); RBC Distribution Width 18.5 % (11.5-14.5); Red Blood Cell (RBC) Count 3.38 mill/uL (4.70-6.10); White Blood Cell (WBC) Count 12.4 10x3/uL (4.8-10.8)
[2022-10-01 05:43] LABS: Platelet Count 116 10x3/uL (130-400)
[2022-10-01 07:12] LABS: Anion Gap 13 mmol/L (10-20); BUN (Urea Nitrogen) 17 mg/dL (8.4-25.7); Calc. Creatinine Clearance 53 mL/min (70-130); Carbon Dioxide 25 mmol/L (23-31); Estimated GFR 72; Glucose 131 mg/dL (83-110)
[2022-10-01] MEDS: Ipratropium/Albuterol 3 ML NEB EZPAP SCH ×4 (08:15→23:13)
[2022-10-01] MEDS: Mometasone 200 MCG/Formoterol 5 MCG 120 PUFF INHALER INH SCH ×2 (08:15→18:49)
[2022-10-01 08:33] LABS: Calcium 8.9 mg/dL (7.8-10.44); Chloride 103 mmol/L (98-107); Potassium 3.3 mmol/L (3.5-5.1); Sodium 138 mmol/L (136-145)
[2022-10-01] MEDS ORDERED: Electrolyte Replacement Protocol 1 EACH FS PRN (09:23)
[2022-10-01] MEDS: Cefepime 1 GM in Sodium Chloride 0.9% 100 ML IVPB SCH ×2 (09:39→22:52)
[2022-10-01] MEDS: Polyethylene Glycol 3350 17 GM Packet PO SCH ×2 (09:39→21:02)
[2022-10-01] MEDS: Aspirin 81 mg Enteric Coated Tablet PO SCH (09:40)
[2022-10-01] MEDS: Amlodipine 10 MG TAB PO SCH (09:40)
[2022-10-01] MEDS: Gabapentin 100 MG CAP PO SCH ×3 (09:40→20:35)
[2022-10-01] MEDS: Tamsulosin HCl 0.4 MG CAP PO SCH (09:40)
[2022-10-01] MEDS ORDERED: Potassium Chloride 20 MEQ TAB PO SCH (09:45)
[2022-10-01] MEDS ORDERED: Electrolyte Replacement Protocol FS PRN (09:45)
[2022-10-01 11:43] LABS: Vancomycin, Trough 16.4 ug/mL
[2022-10-01] MEDS: traMADol HCl 50 MG TAB PO PRN ×2 (12:02→20:35)
[2022-10-01] MEDS ORDERED: Vancomycin 1 GM in Premix Bag 1 BAG IVPB SCH (13:00)
[2022-10-01] MEDS ORDERED: VANCOMYCIN 1.25 GM/250 ML BAG 1.25 GM in Premix Bag 1 BAG IVPB SCH (13:00)
[2022-10-01] MEDS: Vancomycin 1 GM in Premix Bag 1 BAG IVPB SCH (13:17)
[2022-10-01 14:15] LABS: Potassium 4.1 mmol/L (3.5-5.1)
[2022-10-01] MEDS: Terazosin HCl 1 MG CAP PO SCH (20:34)
[2022-10-01] MEDS: Atorvastatin Calcium 40 MG TAB PO SCH (20:35)
[2022-10-01] MEDS: Donepezil HCl 5 MG TAB PO SCH (20:35)
[2022-10-01] MEDS ORDERED: Melatonin 3 MG TAB PO PRN (21:42)
[2022-10-02 04:23] LABS: #Eosinphils 0.1 thou/uL (0.0-0.7); #Monocytes 1.4 thou/uL (0.11-0.59); #Neutrophils 7.4 thou/uL (1.40-6.50); %Basophils 0.4 % (0.0-1.0); %Eosinophils 0.6 % (0.0-10.0); %Lymphocytes 7.6 % (21.0-51.0); %Neutrophils 76.7 % (42.0-75.0); Hematocrit 35.1 % (42.0-52.0); Hemoglobin 11.1 g/dL (14.0-18.0); Mean Corpuscular HGB CONC 31.6 g/dL (32.0-36.0); Mean Corpuscular Hemoglobin 32.1 pg (27.0-31.0); Mean Corpuscular Volume 101.4 fl (78.0-98.0); Platelet Count 115 10x3/uL (130-400); RBC Distribution Width 18.4 % (11.5-14.5); Red Blood Cell (RBC) Count 3.46 mill/uL (4.70-6.10); White Blood Cell (WBC) Count 9.6 10x3/uL (4.8-10.8)
[2022-10-02 04:41] LABS: Anion Gap 12 mmol/L (10-20); BUN (Urea Nitrogen) 16 mg/dL (8.4-25.7); Calc. Creatinine Clearance 51 mL/min (70-130); Calcium 8.7 mg/dL (7.8-10.44); Carbon Dioxide 25 mmol/L (23-31); Chloride 103 mmol/L (98-107); Estimated GFR 68; Glucose 143 mg/dL (83-110); Potassium 3.5 mmol/L (3.5-5.1); Sodium 136 mmol/L (136-145)
[2022-10-02] MEDS: Mometasone 200 MCG/Formoterol 5 MCG 120 PUFF INHALER INH SCH ×2 (07:06→18:35)
[2022-10-02] MEDS: Ipratropium/Albuterol 3 ML NEB EZPAP SCH ×5 (07:08→23:57)
[2022-10-02] MEDS ORDERED: Potassium Chloride 20 MEQ TAB PO SCH (08:00)
[2022-10-02] MEDS: Polyethylene Glycol 3350 17 GM Packet PO SCH ×2 (08:03→20:50)
[2022-10-02] MEDS: Aspirin 81 mg Enteric Coated Tablet PO SCH (08:04)
[2022-10-02] MEDS: Amlodipine 10 MG TAB PO SCH (08:04)
[2022-10-02] MEDS: Gabapentin 100 MG CAP PO SCH ×3 (08:05→20:49)
[2022-10-02] MEDS: Tamsulosin HCl 0.4 MG CAP PO SCH (08:05)
[2022-10-02] MEDS: traMADol HCl 50 MG TAB PO PRN (08:06)
[2022-10-02] MEDS: Cefepime 1 GM in Sodium Chloride 0.9% 100 ML IVPB SCH (10:00)
[2022-10-02] MEDS: Vancomycin 1 GM in Premix Bag 1 BAG IVPB SCH (12:58)
[2022-10-02] MEDS: HYDROcodone/Acetaminophen 5/325 mg Tablet PO PRN (14:09)
[2022-10-02] MEDS: BSS Opth Solution 15ml BOT EA EYE SCH ×3 (14:52→20:50)
[2022-10-02] MEDS: Terazosin HCl 1 MG CAP PO SCH (20:49)
[2022-10-02] MEDS: Senokot S 8.6-50 MG TAB PO SCH (20:50)
[2022-10-02] MEDS: Atorvastatin Calcium 40 MG TAB PO SCH (20:50)
[2022-10-02] MEDS: Donepezil HCl 5 MG TAB PO SCH (20:50)
[2022-10-03] MEDS: Cefepime 1 GM in Sodium Chloride 0.9% 100 ML IVPB SCH ×2 (00:58→12:12)
[2022-10-03] MEDS: Mometasone 200 MCG/Formoterol 5 MCG 120 PUFF INHALER INH SCH (07:09)
[2022-10-03] MEDS: Ipratropium/Albuterol 3 ML NEB EZPAP SCH ×2 (07:11→14:06)
[2022-10-03] MEDS: Gabapentin 100 MG CAP PO SCH ×2 (08:12→16:13)
[2022-10-03] MEDS: HYDROcodone/Acetaminophen 5/325 mg Tablet PO PRN ×2 (08:12→14:51)
[2022-10-03] MEDS: Tamsulosin HCl 0.4 MG CAP PO SCH (08:12)
[2022-10-03] MEDS: Polyethylene Glycol 3350 17 GM Packet PO SCH (08:13)
[2022-10-03] MEDS: Aspirin 81 mg Enteric Coated Tablet PO SCH (08:17)
[2022-10-03] MEDS: Senokot S 8.6-50 MG TAB PO SCH (08:57)
[2022-10-03] MEDS: BSS Opth Solution 15ml BOT EA EYE SCH ×3 (09:00→16:14)
[2022-10-03 12:31] LABS: Vancomycin, Trough 19.7 ug/mL
[2022-10-03] MEDS: Vancomycin 1 GM in Premix Bag 1 BAG IVPB SCH ×2 (12:50→12:51)
[2022-10-03 15:47] VITALS: BP 163/70; TEMP 97.6
== END 2022-10-03 18:10 | disposition home health service (06) | DRG 194 ==
LOC: 2NO 14:40
PROVIDERS: ADMIT Family Medicine; ATTEND Family Medicine
DX: J18.9 Pneumonia, unspecified organism (principal); C34.90 Malignant neoplasm of unspecified part of unspecified bronchus or lung; I50.32 Chronic diastolic (congestive) heart failure; J96.10 Chronic respiratory failure, unspecified whether with hypoxia or hypercapnia; E78.5 Hyperlipidemia, unspecified; J44.9 Chronic obstructive pulmonary disease, unspecified; N40.0 Benign prostatic hyperplasia without lower urinary tract symptoms; K59.00 Constipation, unspecified; G62.9 Polyneuropathy, unspecified; I48.0 Paroxysmal atrial fibrillation; I11.0 Hypertensive heart disease with heart failure; I49.5 Sick sinus syndrome; I44.0 Atrioventricular block, first degree; D69.6 Thrombocytopenia, unspecified; Z90.49 Acquired absence of other specified parts of digestive tract; Z98.890 Other specified postprocedural states; Z87.891 Personal history of nicotine dependence; Z79.82 Long term (current) use of aspirin; Z79.899 Other long term (current) drug therapy; Z85.46 Personal history of malignant neoplasm of prostate
CPT/HCPCS: 36415; 80048; 80202; 85025; 87081; 87449; 87633; 87798; 87899; 93005; 93010; 94640; 94664; J0692; J1650; J3370; J3370-JW; J3490; J7611; J7620

== ENCOUNTER 2022-11-02 05:04 | Inpatient (IN) | payer MEDICARE ==
[2022-11-02] MEDS ORDERED: Sodium Chloride 0.9% 1,000 ML IV SCH (06:15)
[2022-11-02] MEDS ORDERED: Ondansetron PF 4 MG/2 ML Vial IVP PRN (08:21)
[2022-11-02] MEDS ORDERED: Senokot S 8.6-50 MG TAB PO PRN (08:21)
[2022-11-02] MEDS ORDERED: Ondansetron ODT 4 MG TAB PO PRN (08:21)
[2022-11-02] MEDS ORDERED: Acetaminophen 325 MG TAB PO PRN (08:21)
[2022-11-02] MEDS ORDERED: Acetaminophen 650 MG Suppository PR PRN (08:21)
[2022-11-02] MEDS ORDERED: Iopamidol-370 76% 500 ML MDV (1 ML CHARGE) ONE (08:50)
[2022-11-02 08:54] LABS: #Monocytes 0.2 thou/uL (0.11-0.59); #Neutrophils 10.8 thou/uL (1.40-6.50); %Basophils 0.2 % (0.0-1.0); %Eosinophils 0.1 % (0.0-10.0); %Lymphocytes 3.9 % (21.0-51.0); %Monocytes 1.6 % (0.0-10.0); %Neutrophils 93.5 % (42.0-75.0); Hematocrit 39.5 % (42.0-52.0); Hemoglobin 12.7 g/dL (14.0-18.0); Mean Corpuscular HGB CONC 32.2 g/dL (32.0-36.0); Mean Corpuscular Hemoglobin 32.6 pg (27.0-31.0); Mean Corpuscular Volume 101.3 fl (78.0-98.0); Mean Platelet Volume 9.8 fL (7.4-10.4); RBC Distribution Width 15.5 % (11.5-14.5); White Blood Cell (WBC) Count 11.6 10x3/uL (4.8-10.8)
[2022-11-02 08:56] LABS: Platelet Count 67 10x3/uL (130-400)
[2022-11-02 09:04] LABS: Anion Gap 15 mmol/L (10-20); BUN (Urea Nitrogen) 20 mg/dL (8.4-25.7); Calc. Creatinine Clearance 0 mL/min (70-130); Calcium 8.9 mg/dL (7.8-10.44); Carbon Dioxide 25 mmol/L (23-31); Chloride 103 mmol/L (98-107); Estimated GFR 52; Glucose 273 mg/dL (83-110); Potassium 4.5 mmol/L (3.5-5.1); Sodium 138 mmol/L (136-145)
[2022-11-02] MEDS: Azithromycin 500 MG in Sodium Chloride 0.9% 250 ML 250 ML IVPB SCH (11:44)
[2022-11-02] MEDS: Polyethylene Glycol 3350 17 GM Packet PO PRN ×2 (11:45→17:51)
[2022-11-02] MEDS: Sodium Chloride 0.9% 1,000 ML IV SCH ×2 (11:45→23:18)
[2022-11-02 12:06] VITALS: BMI 27.8
[2022-11-02] MEDS ORDERED: traMADol HCl 50 MG TAB PO PRN (13:37)
[2022-11-02] MEDS: Ipratropium/Albuterol 3 ML NEB NEB SCH ×3 (13:48→19:29)
[2022-11-02] MEDS: Gabapentin 100 MG CAP PO SCH ×2 (14:47→21:06)
[2022-11-02] MEDS: methylPREDNISolone Sod Succ 40 MG VIAL IVP SCH ×2 (14:48→18:53)
[2022-11-02] MEDS ORDERED: Cefepime 2 GM in Sodium Chloride 0.9% 100 ML IVPB SCH (15:00)
[2022-11-02] MEDS: Mometasone 100 MCG HFA INHALER (RT USE) INH SCH (19:30)
[2022-11-02] MEDS ORDERED: Vancomycin HCl 1 GM in Sodium Chloride 0.9% 250 ML 250 ML IVPB SCH (21:00)
[2022-11-02] MEDS: Donepezil HCl 5 MG TAB PO SCH (21:06)
[2022-11-02] MEDS: Atorvastatin Calcium 20 MG TAB PO SCH (21:06)
[2022-11-03] MEDS: methylPREDNISolone Sod Succ 40 MG VIAL IVP SCH ×5 (00:26→23:49)
[2022-11-03] MEDS: Ipratropium/Albuterol 3 ML NEB NEB SCH ×4 (01:20→18:54)
[2022-11-03] MEDS: Vancomycin 1 GM in Premix Bag 1 BAG IVPB SCH (02:10)
[2022-11-03 05:10] LABS: #Monocytes 0.4 thou/uL (0.11-0.59); #Neutrophils 10.3 thou/uL (1.40-6.50); %Basophils 0.2 % (0.0-1.0); %Lymphocytes 3.3 % (21.0-51.0); %Monocytes 3.2 % (0.0-10.0); %Neutrophils 92.8 % (42.0-75.0); Hemoglobin 12.2 g/dL (14.0-18.0); Mean Corpuscular HGB CONC 30.5 g/dL (32.0-36.0); Mean Platelet Volume 9.9 fL (7.4-10.4); RBC Distribution Width 15.5 % (11.5-14.5); White Blood Cell (WBC) Count 11.1 10x3/uL (4.8-10.8)
[2022-11-03 05:11] LABS: Platelet Count 81 10x3/uL (130-400)
[2022-11-03 05:12] LABS: Mean Corpuscular Volume 108.1 fl (78.0-98.0)
[2022-11-03 05:33] LABS: Anion Gap 15 mmol/L (10-20); BUN (Urea Nitrogen) 22 mg/dL (8.4-25.7); Calc. Creatinine Clearance 48 mL/min (70-130); Calcium 9.4 mg/dL (7.8-10.44); Carbon Dioxide 21 mmol/L (23-31); Chloride 105 mmol/L (98-107); Estimated GFR 60; Glucose 241 mg/dL (83-110); Potassium 4.2 mmol/L (3.5-5.1); Sodium 137 mmol/L (136-145)
[2022-11-03] MEDS: Mometasone 100 MCG HFA INHALER (RT USE) INH SCH ×2 (07:29→18:55)
[2022-11-03] MEDS: Polyethylene Glycol 3350 17 GM Packet PO PRN ×3 (08:55→15:32)
[2022-11-03] MEDS: Ferrous Sulfate 325 MG TAB PO SCH (08:57)
[2022-11-03] MEDS: Ascorbic Acid 500 mg Chewable Tablet PO SCH (08:58)
[2022-11-03] MEDS: Aspirin 81 mg Enteric Coated Tablet PO SCH (08:58)
[2022-11-03] MEDS: Amlodipine 5 MG TAB PO SCH (08:58)
[2022-11-03] MEDS: Fish Oil 1,000 MG CAP PO SCH (08:58)
[2022-11-03] MEDS: Tamsulosin HCl 0.4 MG CAP PO SCH (08:59)
[2022-11-03] MEDS: Multivitamin W/ Minerals 1 TAB PO SCH (08:59)
[2022-11-03] MEDS: Gabapentin 100 MG CAP PO SCH ×3 (08:59→22:16)
[2022-11-03] MEDS ORDERED: Non-Formulary Item 1 EACH (Multivit-Min/Folic/Vit K/Lycop [Men's 50 Plus Multivitamin Tab PO SCH (09:00)
[2022-11-03] MEDS ORDERED: ASCORBIC ACID 1000 MG PO SCH (09:00)
[2022-11-03] MEDS: Azithromycin 500 MG in Sodium Chloride 0.9% 250 ML 250 ML IVPB SCH (09:11)
[2022-11-03] MEDS: Sodium Chloride 0.9% 1,000 ML IV SCH ×3 (09:12→23:49)
[2022-11-03] MEDS: Atorvastatin Calcium 20 MG TAB PO SCH (22:17)
[2022-11-03] MEDS: Donepezil HCl 5 MG TAB PO SCH (22:17)
[2022-11-04] MEDS: Melatonin 3 MG TAB PO PRN ×2 (00:35→20:41)
[2022-11-04] MEDS: Ipratropium/Albuterol 3 ML NEB NEB SCH ×4 (01:22→19:07)
[2022-11-04] MEDS: Vancomycin 1 GM in Premix Bag 1 BAG IVPB SCH (01:44)
[2022-11-04 02:39] LABS: Vancomycin, Trough 9.1 ug/mL
[2022-11-04] MEDS ORDERED: Vancomycin HCl 500 MG in Sodium Chloride 0.9% 100 ML IVPB SCH (03:30)
[2022-11-04 04:52] LABS: #Monocytes 0.4 thou/uL (0.11-0.59); #Neutrophils 11.5 thou/uL (1.40-6.50); %Basophils 0.1 % (0.0-1.0); %Lymphocytes 2.9 % (21.0-51.0); %Monocytes 3.5 % (0.0-10.0); Hematocrit 37.5 % (42.0-52.0); Hemoglobin 11.6 g/dL (14.0-18.0); Mean Corpuscular HGB CONC 30.9 g/dL (32.0-36.0); Mean Corpuscular Hemoglobin 32.8 pg (27.0-31.0); Mean Corpuscular Volume 105.9 fl (78.0-98.0); Platelet Count 114 10x3/uL (130-400); RBC Distribution Width 15.5 % (11.5-14.5); Red Blood Cell (RBC) Count 3.54 mill/uL (4.70-6.10); White Blood Cell (WBC) Count 12.3 10x3/uL (4.8-10.8)
[2022-11-04] MEDS: methylPREDNISolone Sod Succ 40 MG VIAL IVP SCH ×3 (05:51→17:11)
[2022-11-04] MEDS: Mometasone 100 MCG HFA INHALER (RT USE) INH SCH ×2 (07:43→19:08)
[2022-11-04 08:52] LABS: Anion Gap 18 mmol/L (10-20); BUN (Urea Nitrogen) 18 mg/dL (8.4-25.7); Calc. Creatinine Clearance 62 mL/min (70-130); Calcium 8.7 mg/dL (7.8-10.44); Carbon Dioxide 16 mmol/L (23-31); Chloride 105 mmol/L (98-107); Estimated GFR 81; Glucose 225 mg/dL (83-110); Potassium 4.6 mmol/L (3.5-5.1); Sodium 134 mmol/L (136-145)
[2022-11-04] MEDS: Amlodipine 5 MG TAB PO SCH (09:19)
[2022-11-04] MEDS: Fish Oil 1,000 MG CAP PO SCH (09:20)
[2022-11-04] MEDS: Gabapentin 100 MG CAP PO SCH ×3 (09:20→20:41)
[2022-11-04] MEDS: Multivitamin W/ Minerals 1 TAB PO SCH (09:21)
[2022-11-04] MEDS: Ferrous Sulfate 325 MG TAB PO SCH (09:21)
[2022-11-04] MEDS: Aspirin 81 mg Enteric Coated Tablet PO SCH (09:21)
[2022-11-04] MEDS: Tamsulosin HCl 0.4 MG CAP PO SCH (09:21)
[2022-11-04] MEDS: Azithromycin 500 MG in Sodium Chloride 0.9% 250 ML 250 ML IVPB SCH (09:22)
[2022-11-04] MEDS: Ascorbic Acid 500 mg Chewable Tablet PO SCH (09:25)
[2022-11-04] MEDS ORDERED: cefTRIAXone\\ROCEPHIN 1 GM in Sodium Chloride 0.9% 100 ML IVPB SCH (13:00)
[2022-11-04] MEDS: Sodium Chloride 0.9% 1,000 ML IV SCH ×2 (13:33→20:44)
[2022-11-04] MEDS ORDERED: Amlodipine 5 MG TAB PO SCH (14:15)
[2022-11-04] MEDS: Polyethylene Glycol 3350 17 GM Packet PO PRN (19:30)
[2022-11-04] MEDS: Atorvastatin Calcium 20 MG TAB PO SCH (20:41)
[2022-11-04] MEDS: Donepezil HCl 5 MG TAB PO SCH (20:41)
[2022-11-05] MEDS: methylPREDNISolone Sod Succ 40 MG VIAL IVP SCH ×3 (00:43→12:33)
[2022-11-05] MEDS: Sodium Chloride 0.9% 1,000 ML IV SCH (00:47)
[2022-11-05] MEDS: Ipratropium/Albuterol 3 ML NEB NEB SCH ×3 (00:54→13:19)
[2022-11-05] MEDS ORDERED: Vancomycin 1.5 GRAM/300 ML BAG 1.5 GM in Premix Bag 1 BAG IVPB SCH (02:00)
[2022-11-05 05:01] LABS: #Monocytes 0.4 thou/uL (0.11-0.59); #Neutrophils 9.8 thou/uL (1.40-6.50); %Basophils 0.1 % (0.0-1.0); %Lymphocytes 2.8 % (21.0-51.0); %Monocytes 3.4 % (0.0-10.0); %Neutrophils 92.9 % (42.0-75.0); Hematocrit 37.7 % (42.0-52.0); Hemoglobin 12.1 g/dL (14.0-18.0); Mean Corpuscular HGB CONC 32.1 g/dL (32.0-36.0); Mean Corpuscular Hemoglobin 32.7 pg (27.0-31.0); Mean Corpuscular Volume 101.9 fl (78.0-98.0); Mean Platelet Volume 9.1 fL (7.4-10.4); Platelet Count 126 10x3/uL (130-400); RBC Distribution Width 15.1 % (11.5-14.5); White Blood Cell (WBC) Count 10.5 10x3/uL (4.8-10.8)
[2022-11-05 07:07] LABS: Anion Gap 14 mmol/L (10-20); BUN (Urea Nitrogen) 18 mg/dL (8.4-25.7); Calc. Creatinine Clearance 65 mL/min (70-130); Carbon Dioxide 25 mmol/L (23-31); Chloride 100 mmol/L (98-107); Estimated GFR 84; Glucose 234 mg/dL (83-110); Potassium 3.3 mmol/L (3.5-5.1); Sodium 136 mmol/L (136-145)
[2022-11-05] MEDS: Mometasone 100 MCG HFA INHALER (RT USE) INH SCH (07:43)
[2022-11-05] MEDS ORDERED: Potassium Chloride 20 MEQ TAB PO SCH (07:45)
[2022-11-05] MEDS ORDERED: Amlodipine 5 MG TAB PO SCH (09:00)
[2022-11-05] MEDS ORDERED: Cefdinir 300 MG CAP PO SCH (09:00)
[2022-11-05] MEDS ORDERED: Azithromycin 250 MG TAB PO SCH (09:00)
[2022-11-05] MEDS: Fish Oil 1,000 MG CAP PO SCH (09:55)
[2022-11-05] MEDS: Ascorbic Acid 500 mg Chewable Tablet PO SCH (09:55)
[2022-11-05] MEDS: Multivitamin W/ Minerals 1 TAB PO SCH (09:55)
[2022-11-05] MEDS: Aspirin 81 mg Enteric Coated Tablet PO SCH (09:55)
[2022-11-05] MEDS: Gabapentin 100 MG CAP PO SCH ×2 (09:56→14:06)
[2022-11-05] MEDS: Tamsulosin HCl 0.4 MG CAP PO SCH (09:57)
[2022-11-05] MEDS: Ferrous Sulfate 325 MG TAB PO SCH (09:57)
[2022-11-05] MEDS: Polyethylene Glycol 3350 17 GM Packet PO PRN (14:06)
[2022-11-05 16:36] VITALS: BP 133/82; TEMP 98
== END 2022-11-05 16:30 | disposition home or self-care (01) | DRG 871 ==
LOC: ERS 05:04 → ERHOLD 06:01 → 2NO 09:29
PROVIDERS: ADMIT Student in an Organized Health Care Education/Training Program; ATTEND Emergency Medicine
DX: A41.9 Sepsis, unspecified organism (principal); J18.9 Pneumonia, unspecified organism; J96.21 Acute and chronic respiratory failure with hypoxia; C34.90 Malignant neoplasm of unspecified part of unspecified bronchus or lung; N17.9 Acute kidney failure, unspecified; Z66 Do not resuscitate; J44.9 Chronic obstructive pulmonary disease, unspecified; I48.0 Paroxysmal atrial fibrillation; C61 Malignant neoplasm of prostate; N40.0 Benign prostatic hyperplasia without lower urinary tract symptoms; Z79.82 Long term (current) use of aspirin; Z79.2 Long term (current) use of antibiotics; Z79.899 Other long term (current) drug therapy; Z87.891 Personal history of nicotine dependence
CPT/HCPCS: 36415; 71275; 80048; 80202; 85025; 94640; J0456; J0692; J0696; J2920; J3370; J3370-JW; J3490; J7050; J7620; Q9967

== ENCOUNTER 2023-08-26 21:10 | Inpatient (IN) | payer MEDICARE ==
[2023-08-26 21:51] LABS: Actual Bicarbonate (HCO3a) 27.9 mEq/L (22-28); Analyzer IN Cardio ER; Base Excess (BEa) 3.9 mEq/L (-2.0 to +3.0); CO2 Tension 39.8 mmHg (35.0-45.0); Calcium, Ionized (arterial) 1.14 mmol/L (1.12-1.30); Carboxyhemoglobin (COHb) 0.3 gm% (0.0-3.0); Hematocrit-ABG 43 % (42.0-52.0); Hemoglobin (Hb) 14.5 g/dL (14.0-18.0); O2 Tension (PaO2), arterial 65.6 mmHg (> 60.0); Potassium - ABG Lab 3.09 mmol/L (3.70-5.30); pH, Arterial 7.463 (7.35-7.45)
[2023-08-26 21:53] LABS: Puncture Site LRA
[2023-08-26] MEDS ORDERED: Ondansetron PF 4 MG/2 ML Vial IVP PRN (23:15)
[2023-08-26] MEDS ORDERED: Ondansetron ODT 4 MG TAB SL PRN (23:15)
[2023-08-26] MEDS ORDERED: Sodium Chloride 0.9% 1,000 ML IV SCH (23:15)
[2023-08-27 00:04] LABS: Influenza A by NAA Not Detected (NotDetected); Influenza B by NAA Not Detected (NotDetected); SARS-CoV-2 NAA Rapid Test Not Detected (NotDetected)
[2023-08-27] MEDS ORDERED: Acetaminophen 650 MG Suppository PR PRN (00:21)
[2023-08-27] MEDS ORDERED: Ipratropium/Albuterol 3 ML NEB NEB PRN (00:22)
[2023-08-27] MEDS ORDERED: Electrolyte Replacement Protocol 1 EACH FS SCH (00:30)
[2023-08-27] MEDS ORDERED: methylPREDNISolone Sod Succ/PF 125 MG/2 ML VIAL IVP SCH (01:00)
[2023-08-27] MEDS ORDERED: Albuterol 2.5 MG (3 mL) NEB NEB PRN (01:13)
[2023-08-27 01:23] VITALS: BMI 28.7
[2023-08-27] MEDS: cefTRIAXone\\ROCEPHIN 1 GM in Sodium Chloride 0.9% 100 ML IVPB SCH (02:24)
[2023-08-27] MEDS: Ipratropium/Albuterol 3 ML NEB NEB SCH (03:21)
[2023-08-27 05:04] LABS: #Basophils Less than 0.03 10x3/uL (0.0-0.2); #Eosinphils Less than 0.03 10x3/uL (0.0-0.7); %Basophils 0.2 % (0.0-1.0); %Lymphocytes 2.1 % (21.0-51.0); %Monocytes 1.9 % (0.0-10.0); %Neutrophils 94.7 % (42.0-75.0); Hematocrit 42.1 % (42.0-52.0); Hemoglobin 13.6 g/dL (14.0-18.0); Mean Corpuscular HGB CONC 32.3 g/dL (32.0-36.0); Mean Corpuscular Volume 99.1 fL (78.0-98.0); Mean Platelet Volume 8.4 fL (7.4-10.4); Platelet Count 246 10x3/uL (130-400); RBC Distribution Width 14.6 % (11.5-14.5); Red Blood Cell (RBC) Count 4.25 mill/uL (4.70-6.10)
[2023-08-27 05:18] LABS: Troponin I 0.041 ng/mL (< 0.028)
[2023-08-27 05:20] LABS: Anion Gap 18 mmol/L (10-20); BUN (Urea Nitrogen) 20 mg/dL (8.4-25.7); Calc. Creatinine Clearance 47 mL/min (70-130); Calcium 9.1 mg/dL (7.8-10.44); Carbon Dioxide 31 mmol/L (23-31); Chloride 100 mmol/L (98-107); Estimated GFR 62; Glucose 328 mg/dL (83-110); Potassium 3.1 mmol/L (3.5-5.1); Sodium 146 mmol/L (136-145)
[2023-08-27] MEDS: Potassium Chloride 20 MEQ in Premix 1 BAG IVPB SCH (06:33)
[2023-08-27] MEDS ORDERED: HumaLOG 300 UNITS/3 ML VIAL SC PRN (07:36)
[2023-08-27] MEDS ORDERED: Glucagon 1 MG/ML KIT IM PRN (07:36)
[2023-08-27] MEDS ORDERED: Dextrose 5% in Water 1,000 ML IV PRN (07:36)
[2023-08-27] MEDS ORDERED: Dextrose 50% Abboject 50 ML SYRINGE SLOW IVP PRN (07:36)
[2023-08-27] MEDS: Mometasone 100 MCG HFA INHALER (RT USE) INH SCH (07:52)
[2023-08-27] MEDS: Enoxaparin 40 MG (0.4 mL) SYRINGE SC SCH (08:42)
[2023-08-27] MEDS: Polyethylene Glycol 3350 17 GM Packet PO SCH ×2 (12:44→20:18)
[2023-08-27] MEDS: Insulin Lispro 100 UNIT/ML 10 ML VIAL SC PRN (12:54)
[2023-08-27 13:26] VITALS: BMI 28.7
[2023-08-28 05:10] LABS: #Basophils 0.03 10x3/uL (0.0-0.2); #Eosinphils Less than 0.03 10x3/uL (0.0-0.7); %Basophils 0.1 % (0.0-1.0); %Lymphocytes 4.1 % (21.0-51.0); %Monocytes 5.9 % (0.0-10.0); Hematocrit 41.8 % (42.0-52.0); Hemoglobin 13.3 g/dL (14.0-18.0); Mean Corpuscular HGB CONC 31.8 g/dL (32.0-36.0); Mean Corpuscular Hemoglobin 31.7 pg (27.0-31.0); Mean Corpuscular Volume 99.5 fL (78.0-98.0); Mean Platelet Volume 8.6 fL (7.4-10.4); Platelet Count 331 10x3/uL (130-400); RBC Distribution Width 15.1 % (11.5-14.5)
[2023-08-28 05:22] LABS: Anion Gap 15 mmol/L (10-20); BUN (Urea Nitrogen) 21 mg/dL (8.4-25.7); Calc. Creatinine Clearance 57 mL/min (70-130); Calcium 9.1 mg/dL (7.8-10.44); Carbon Dioxide 31 mmol/L (23-31); Chloride 101 mmol/L (98-107); Estimated GFR 77; Glucose 179 mg/dL (83-110); Magnesium 2.3 mg/dL (1.6-2.6); Potassium 2.9 mmol/L (3.5-5.1); Sodium 144 mmol/L (136-145)
[2023-08-28] MEDS ORDERED: Potassium Chloride 20 MEQ TAB PO SCH (06:00)
[2023-08-28] MEDS: Potassium Bicarbonate/Cit Ac 20 MEQ TAB PO SCH (06:08)
[2023-08-28] MEDS ORDERED: Electrolyte Replacement Protocol 1 EACH FS SCH (09:45)
[2023-08-28] MEDS: methylPREDNISolone Sod Succ/PF 125 MG/2 ML VIAL IVP SCH (10:09)
[2023-08-28] MEDS: Insulin Glargine 30 UNITS/0.3 ML VIAL SC SCH (10:09)
[2023-08-28] MEDS: Furosemide 40 MG (4 mL) VIAL SLOW IVP SCH (10:10)
[2023-08-28] MEDS: guaiFENesin ER 600 MG TAB PO SCH (10:10)
[2023-08-28 10:24] LABS: Magnesium 2.4 mg/dL (1.6-2.6)
[2023-08-28] MEDS ORDERED: methylPREDNISolone Sod Succ/PF 125 MG/2 ML VIAL IVP SCH (12:00)
[2023-08-28] MEDS ORDERED: methylPREDNISolone Sod Succ 40 MG VIAL IVP SCH (12:00)
[2023-08-28] MEDS: Vancomycin (BATCH) 1.75 GM in Premix 1 BAG IVPB SCH (12:01)
[2023-08-28] MEDS: Acetaminophen 325 MG TAB PO PRN (14:11)
[2023-08-28] MEDS: HYDROcodone/Acetaminophen 5/325 mg Tablet PO PRN (15:09)
[2023-08-28] MEDS: ALPRAZolam 0.25 MG TAB PO PRN (15:09)
[2023-08-28 19:17] VITALS: TEMP 97.6
[2023-08-28 19:21] LABS: Potassium 3.9 mmol/L (3.5-5.1)
[2023-08-28 19:53] VITALS: BP 123/82
[2023-08-28] MEDS ORDERED: Vancomycin 1 GM in Premix 1 BAG IVPB SCH (21:00)
[2023-08-28] MEDS ORDERED: Cefepime 1 GM in Sodium Chloride 0.9% 100 ML IVPB SCH (21:00)
[2023-08-28] MEDS ORDERED: Insulin Glargine 30 UNITS/0.3 ML VIAL SC SCH (21:00)
[2023-08-28] MEDS ORDERED: Vancomycin HCl 750 MG in Sodium Chloride 0.9% 250 ML 250 ML IVPB SCH (23:00)
[2023-08-29] MEDS ORDERED: Insulin Glargine 30 UNITS/0.3 ML VIAL SC SCH (09:00)
[2023-08-29] MEDS ORDERED: methylPREDNISolone Sod Succ 40 MG VIAL IVP SCH (09:00)
[2023-08-29] MEDS ORDERED: Furosemide 40 MG (4 mL) VIAL SLOW IVP SCH (09:00)
[2023-08-29] MEDS ORDERED: Vancomycin HCl 750 MG in Sodium Chloride 0.9% 250 ML 250 ML IVPB SCH (11:00)
== END 2023-08-28 20:30 | disposition home or self-care (01) | DRG 189 ==
LOC: ERS 21:10 → ERHOLD 22:59 → CCU 08-27 00:17 → SURG A 08-27 12:48
PROVIDERS: ADMIT Student in an Organized Health Care Education/Training Program; ATTEND Family Medicine
PROC: 4A033R1 Measurement of Arterial Saturation, Peripheral, Percutaneous Approach (ICD-10-PCS; principal; 2023-08-26)
DX: J96.21 Acute and chronic respiratory failure with hypoxia (principal); J44.1 Chronic obstructive pulmonary disease with (acute) exacerbation; J91.0 Malignant pleural effusion; I48.91 Unspecified atrial fibrillation; N40.0 Benign prostatic hyperplasia without lower urinary tract symptoms; I11.0 Hypertensive heart disease with heart failure; I50.9 Heart failure, unspecified; Z66 Do not resuscitate; R53.81 Other malaise; E87.6 Hypokalemia; R77.8 Other specified abnormalities of plasma proteins; Z79.82 Long term (current) use of aspirin; Z79.899 Other long term (current) drug therapy; Z99.81 Dependence on supplemental oxygen; Z90.49 Acquired absence of other specified parts of digestive tract; Z87.891 Personal history of nicotine dependence; Z51.5 Encounter for palliative care; Z85.118 Personal history of other malignant neoplasm of bronchus and lung
CPT/HCPCS: 36415; 36416; 36600; 71045; 80048; 82805; 83735; 83880; 84145; 84484; 85025; 94640; 94660; 94760; J0696; J1815; J1940; J2930; J3370; J3480; J3490; J7620